=== PATIENT | female | born 1985 | race Hispanic/Latino ===

== ENCOUNTER 2017-02-27 03:21 | Emergency (ER) | payer SELFPAY ==
[2017-02-27 05:04] LABS: Basophils % (Auto) 0.8 % (0.0-1.8); Eosinophils % (Auto) 7.2 % (0.0-4.3); Hematocrit 41.2 % (30.3-42.9); Hemoglobin 14.3 gm/dl (10.1-14.3); Mean Corpuscular HGB Conc 35 % (30-34); Mean Corpuscular Hemoglobin 30 pg (28-32); Mean Corpuscular Volume 87 fl (79-97); Platelet Count 202 K/mm3 (140-440); Red Blood Count 4.74 M/mm3 (3.65-5.03); Red Cell Distribution Width 12.8 % (13.2-15.2); White Blood Count 6.5 K/mm3 (4.5-11.0)
[2017-02-27 05:14] LABS: INR 0.83 (0.87-1.13)
[2017-02-27 05:15] LABS: Partial Thromboplastin Time 28.9 Sec. (24.2-36.6)
[2017-02-27 05:19] LABS: Alanine Aminotransferase 19 units/L (7-56); Albumin 3.8 g/dL (3.9-5); Albumin/Globulin Ratio 1.2 %; Alkaline Phosphatase 64 units/L (35-129); BUN/Creatinine Ratio 15; Blood Urea Nitrogen 9 mg/dL (7-17); Calcium 8.8 mg/dL (8.4-10.2); Carbon Dioxide 24 mmol/L (22-30); Glucose 103 mg/dL (65-100); Total Protein 6.9 g/dL (6.3-8.2)
[2017-02-27 05:20] LABS: Anion Gap 18 mmol/L; Potassium 3.8 mmol/L (3.6-5.0); Sodium 137 mmol/L (137-145)
[2017-02-27] MEDS ORDERED: TESSALON PERLES PO ONE (08:59)
[2017-02-27] MEDS ORDERED: ATIVAN PO ONE (09:00)
[2017-02-27] MEDS ORDERED: MUCINEX ER PO ONE (09:00)
--- NOTE | 2017-02-27 10:01 | XRay Report ---
AP CHEST: HISTORY: chest pain AP view of the chest demonstrates a normal mediastinal and cardiac contour with clear lungs and normal bony and soft tissue structures. IMPRESSION: Unremarkable AP chest.
[2017-02-27 10:27] VITALS: BP 112/91
--- NOTE | 2017-02-27 15:43 | Emergency Department Report ---
HPI - General Chief Complaint: Chest Pain Time Seen by Provider: 02/27/17 07:59 - HPI HPI: The patient is a 31-year-old female presents for evaluation of dyspnea and cough. The patient reports a nonproductive cough for the past one week, severe , worsening over the past one to 2 days, and associated with episodic shortness of breath, mild in severity, improved with rest, and worsened with coughing. The patient denies fever, chest pain, syncope, hemoptysis, unilateral leg swelling, oral contraceptive use, recent immobilization, history of DVT or PE in the past year, recent cancer. ED Past Medical Hx - Past Medical History Previous Medical History?: Yes Additional medical history: PE, - Surgical History Past Surgical History?: Yes Additional Surgical History: hysterctomy - Social History Smoking Status: Current Every Day Smoker Substance Use Type: None - Medications Home Medications: Home Medications Medication Instructions Recorded Confirmed Last Taken Type oxyCODONE /ACETAMINOPHEN [Percocet 1 tab PO Q6HR PRN #12 tablet 01/29/17 Unknown Rx 5/325] ALBUTEROL Inhaler [ProAir HFA 2 puff IH QID PRN #1 inhalation 02/27/17 Unknown Rx Inhaler] Benzonatate [Tessalon Perles] 100 mg PO Q8HR #14 capsule 02/27/17 Unknown Rx guaiFENesin [Mucinex] 600 mg PO BID #20 tab.er.12h 02/27/17 Unknown Rx ED Review of Systems ROS: Stated complaint: SHORTNESS OF BREATH Other details as noted in HPI Constitutional: denies: fever ENT: denies: throat or neck pain Respiratory: denies: cough reports shortness of breath Cardiovascular: denies: chest pain Endocrine: denies unexplained weight loss or gain Gastrointestinal: denies: abdominal pain, nausea Genitourinary: denies: dysuria Musculoskeletal: denies: leg swelling Skin: denies: rash Neurological: denies: headache Hematological/Lymphatic: denies: easy bleeding or easy bruising Psych: denies sadness or hopelessness Physical Exam - Physical Exam Vital Signs: Vital Signs 02/27/17 02/27/17 02/27/17 03:30 04:16 08:37 Temperature 97.5 F L 97.5 F L Pulse Rate 74 72 Respiratory 18 17 Rate Blood Pressure 125/93 125/93 Blood Pressure [Left] O2 Sat by Pulse 98 99 98 Oximetry 02/27/17 02/27/17 02/27/17 08:38 08:39 08:41 Temperature 98.7 F Pulse Rate 69 75 62 Respiratory 15 13 19 Rate Blood Pressure 123/87 123/87 123/87 Blood Pressure 123/87 [Left] O2 Sat by Pulse 98 97 97 Oximetry 02/27/17 02/27/17 09:05 09:20 Temperature Pulse Rate 77 64 Respiratory 18 19 Rate Blood Pressure 123/87 123/87 Blood Pressure [Left] O2 Sat by Pulse 99 97 Oximetry Physical Exam: General: well-nourished, well-developed, no acute distress Head: Normocephalic, atraumatic Eyes: normal sclera ENT: Mucous membranes are pink and moist, bilateral nasal congestion present Neck: trachea midline, neck supple, No neck stiffness, no cervical adenopathy Respiratory: Breath sounds equal bilaterally, no wheezing, rales, or rhonchi Cardio: S1 and S2 present, no murmurs, rubs, gallops, capillary refill is brisk Abdomen: Normoactive bowel sounds, soft abdomen, no rigidity, no guarding or rebound tenderness Chest WALL/Back: No tenderness to palpation of the chest wall, no CVA tenderness with percussion Musc: No pitting edema Skin: No rash Neuro: no facial drooping, normal speech Psych: Normal affect ED Course Vital Signs 02/27/17 02/27/17 02/27/17 03:30 04:16 08:37 Temperature 97.5 F L 97.5 F L Pulse Rate 74 72 Respiratory 18 17 Rate Blood Pressure 125/93 125/93 Blood Pressure [Left] O2 Sat by Pulse 98 99 98 Oximetry 02/27/17 02/27/17 02/27/17 08:38 08:39 08:41 Temperature 98.7 F Pulse Rate 69 75 62 Respiratory 15 13 19 Rate Blood Pressure 123/87 123/87 123/87 Blood Pressure 123/87 [Left] O2 Sat by Pulse 98 97 97 Oximetry 02/27/17 02/27/17 09:05 09:20 Temperature Pulse Rate 77 64 Respiratory 18 19 Rate Blood Pressure 123/87 123/87 Blood Pressure [Left] O2 Sat by Pulse 99 97 Oximetry ED Medical Decision Making - Lab Data Result diagrams: 02/27/17 04:43 02/27/17 04:43 - Medical Decision Making The patient was seen and examined by myself. The patient is placed on a teletypesetter monitor and continuous pulse ox. On initial evaluation, the patient was found to be in no distress. Evaluation orders were placed. EKG was negative for findings suggestive of acute cardiac infarct. The patient is given Tessalon Perles for their cough and Mucinex for congestion. Lab results were not concerning. Chest x-ray is negative for pulmonary vessel congestion, pleural effusion, focal consolidation, or other acute cardio pulmonary disease process. The patient was reevaluated and reported that their symptoms were markedly improved. On reexamination the patient is found to have normal respiratory rate and O2 sat on pulse oximetry, with no costal retractions or diminishment of breath sounds on auscultation. As the patient has a well's score less than 2, is PERC negative, and has maintained in the 60s-70s & O2 Sat> 95% throughout ED course, the patient is at low risk of pulmonary emboli etiology of their symptoms. The patient is discharged in stable condition. The patient is stable for discharge with outpatient follow-up. The patient is given follow-up and return instructions. The patient expressed understanding and agreed with the plan. The patient is discharged in stable condition. Critical care attestation.: If time is entered above; I have spent that time in minutes in the direct care of this critically ill patient, excluding procedure time. ED Disposition Clinical Impression: Upper respiratory infection, acute, Anxiety Dyspnea Qualifiers: Dyspnea type: unspecified Qualified Code(s): R06.00 - Dyspnea, unspecified Disposition: DC-01 TO HOME OR SELFCARE Is pt being admited?: No Does the pt Need Aspirin: No Condition: Stable Instructions: Upper Respiratory Infection (ED), Viral Syndrome (ED), Anxiety ( ED) Referrals: PRIMARY CARE, [Primary Care Provider] - 3-5 Days Time of Disposition: 10:24
== END 2017-02-27 10:45 | disposition home or self-care (01) ==
LOC: ED 03:21
DX: J06.9 Acute upper respiratory infection, unspecified (principal); F41.9 Anxiety disorder, unspecified; F17.200 Nicotine dependence, unspecified, uncomplicated; Z90.710 Acquired absence of both cervix and uterus
CPT/HCPCS: 36415; 71010; 80053; 85025; 85610; 85730; 93005; 93010; 99284